=== PATIENT | female | born 1955 | race Hispanic/Latino ===

== ENCOUNTER → 2019-10-27 | Day surgery (SDC) | payer BC ==
[~2019-10-27] MED LIST: AMLODIPINE BESY10 MG PO; ASPIR 8181 MG PO; CALCET TABLET1 EACH PO; FENTANYL CITRATE/PF 100MCG/2 ML INJ ONE; GLUCAGON FOR INJ 1 MG VIAL ONE; LISINOPRIL2.5 MG PO; MECLIZINE HCL12.5 MG PO; ONE DAILY MULT1 EAC1 PO; PANTOPRAZOLE SO40 MG PO; PROPOFOL IV EMULSION 10 MG/ML 20 ML VIAL ONE; VITAMIN B12 PO
--- OUTSIDE RECORDS SUMMARY | 2019-10-27 10:58 | XMS REPORT ---
Author Author [facility] Address Unknown Phone Unavailable Care Team Providers Care Roofer Metal Name Role Phone Unavailable Unavailable Payers Payer Name Policy Type Policy Number Effective Date Expiration Date Problems This patient has no known problems. Allergies, Adverse Reactions, Alerts Allergy Name Allergy Type Status Severity Reaction(s) Onset Date Inactive Date Treating Clinician Comments No Known Allergies DA Active U 2018-09-14 00:00:00 No Known Drug Intolerances DA Active U 2003-03-14 00:00:00 No Known Contrast Allergies DA Active U 2003-03-13 00:00:00 No Known Drug Allergies DA Active U 2003-03-13 00:00:00 No Known Food Allergies DA Active U 2003-03-13 00:00:00 No Known Other Allergies DA Active U 2003-03-13 00:00:00 Medications This patient has no known medications. Results Test Description Test Time Test Comments Text Results Atomic Results Result Comments SCR MAMM BILATERAL MICHELL CAD DIGITAL W/AUGMENTATION 2019-02-03 08:44:58 - SCR MAMM BILATERAL MICHELL CAD DIGITAL W/AUGMENTATIONBILATERAL DIGITAL SCREENING MAMMOGRAM 3D/2D WITH CAD WITH AUGMENTATION: 01/31/2019CLINICAL: Asymptomatic. Digital breast tomosynthesis was performed in addition to routine CC and MLO views. Current mammographic images were evaluated by either a [employer] M-Vu or a [employer] ImageChecker CAD (computer aided detection system). Comparison is made to exams dated 12/04/2017 mammogram, 10/30/2016 mammogram, and 09/05/2015 mammogram - [facility]-. The tissue of both reconstructed breasts is predominantly fatty. Bilateral retropectoral silicone implants are seen.There is a benign calcification in the right breast. No suspicious mass, architectural distortion, malignant type calcification, or lymph node abnormality detected. Breast architecture is stable compared to prior exams.IMPRESSION: BENIGNThere is no mammographic evidence of malignancy. Resume annual screening mammography in one year. Garfield Padron M.D. ss/:02/03/2019 08:44:58 Resident Program Specialist: Yajaira BUSTAMANTE, [facility]-FWletter sent: BIRADS 1-2 Normal Mammogram BI-RADS: 2 Benign
[2019-10-27 14:15] VITALS: BP 128/71
--- NOTE | 2019-10-27 20:28 | Operative Report ---
DATE OF PROCEDURE: 10/27/2019 SURGEON: Bryce Stratton MD PROCEDURE PERFORMED: Colonoscopy with polypectomy. INDICATIONS FOR COLONOSCOPY: Colorectal cancer screening. MEDICATIONS: The patient was done under MAC, please see anesthesiologist's note. PROCEDURE IN DETAIL: With the patient in left lateral decubitus position, a flexible fiberoptic Olympus colonoscope was inserted into the rectum with ease and advanced all the way to the cecum. It was then withdrawn slowly. Mucosa overlying the cecum and ascending colon appeared to be within normal limits. One polyp was noted in the distal transverse colon that was hot biopsied. Diverticular disease was noted in the distal descending and sigmoid colon. The rectum grossly appeared to be within normal limits. The scope was then retroflexed into the distal rectum and small internal hemorrhoids were noted, none of which was actively bleeding. The scope was then straightened out. It was subsequently withdrawn. The patient tolerated the procedure well. IMPRESSION: 1. Transverse colon polyp, hot biopsied. 2. Diverticulosis. 3. Internal hemorrhoids, none actively bleeding. PLAN: Follow up histology. Initiate high-fiber, low-fat diet. Initiate high-fiber supplement. The patient might benefit from a followup colonoscopy in 5 years. Bryce Stratton MD [facility] [place] /[id number] cc: Keanu Davila MD
== END | disposition home or self-care (01) ==
LOC: OR 10:53
PROVIDERS: ATTEND Internal Medicine Gastroenterology
DX: K59.09 Other constipation (principal); K63.5 Polyp of colon; K57.30 Diverticulosis of large intestine without perforation or abscess without bleeding; K64.8 Other hemorrhoids; K21.9 Gastro-esophageal reflux disease without esophagitis; I10 Essential (primary) hypertension; E11.9 Type 2 diabetes mellitus without complications; R42 Dizziness and giddiness; Z01.810 Encounter for preprocedural cardiovascular examination; Z68.32 Body mass index [BMI] 32.0-32.9, adult; Z85.3 Personal history of malignant neoplasm of breast
CPT/HCPCS: 45384; 93005; J1610; J2704; J3010; 45378